=== PATIENT | male | born 1975 ===

== ENCOUNTER 2017-08-02 20:08 | Emergency (ER) | payer SELFPAY ==
[2017-08-02 20:38] VITALS: BP 146/87; PULSE 87; RESP 18; TEMP 98; O2SAT 98
--- NOTE | 2017-08-02 21:14 | ED PDOC ---
HPI: Back Time Seen by Provider: 08/02/17 20:44 Chief Complaint (Nursing): Back Pain Chief Complaint (Provider): Neck and Back Pain History Per: Patient History/Exam Limitations: no limitations Onset/Duration Of Symptoms: Days (worse x7 days), Intermittent Episodes Current Symptoms Are (Timing): Still Present Quality Of Discomfort: "Pain" Exacerbating Factor(s): Movement (lowering head down) Additional Complaint(s): 42 y/o male presents to the ED with neck and lower back pain. Patient states it has been occurring intermittently for the past month but symptoms have worsened in the past week. He states when he bends his head down towards his chest the pain in his neck suddenly worsens. Patient states the pain in his back shoots across his lower back and radiates into both legs. 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 He ingested Motrin for the pain at 3:00 PM today with no relief and has been using ICY Hot pads with no relief. Patient denies any recent falls, trauma, incontinence, problems defecating, nausea, vomiting, chest pain, blood in urine, dysuria, abdominal pain, and saddle anesthesia. PCP: None Past Medical History Reviewed: Historical Data Vital Signs: Last Vital Signs Temp 98.0 F 08/02/17 20:35 Pulse 87 08/02/17 20:35 Resp 18 08/02/17 20:35 BP 146/87 08/02/17 20:35 Pulse Ox 98 08/02/17 20:35 - Medical History PMH: No Chronic Diseases - Surgical History Surgical History: No Surg Hx - Family History Family History: States: Unknown Family Hx - Living Arrangements Living Arrangements: With Family - Social History Current smoker - smoking cessation education provided: No Ex-Smoker (has not smoked in the last 12 months): No Alcohol: Social Drugs: Denies - Home Medications Home Medications: Ambulatory Orders Medication Instructions Recorded Cyclobenzaprine [Cyclobenzaprine 10 mg PO Q8 PRN #12 tab 08/02/17 HCl] Meloxicam [Mobic] 15 mg PO DAILY #14 tablet 08/02/17 - Allergies Allergies/Adverse Reactions: Allergies Allergy/AdvReac Type Severity Reaction Status Date / Time No Known Allergies Allergy Verified 08/02/17 20:35 Review of Systems ROS Statement: Except As Marked, All Systems Reviewed And Found Negative Constitutional: Negative for: Fever, Chills, Weakness Cardiovascular: Negative for: Chest Pain Gastrointestinal: Negative for: Nausea, Vomiting, Abdominal Pain, Diarrhea, Constipation, Other (bowel movement issues) Genitourinary Male: Negative for: Dysuria, Incontinence, Hematuria Musculoskeletal: Positive for: Neck Pain, Back Pain Physical Exam - Reviewed Nursing Documentation Reviewed: Yes Vital Signs Reviewed: Yes - Physical Exam Appears: Positive for: Well, Non-toxic, No Acute Distress Head Exam: Positive for: ATRAUMATIC, NORMOCEPHALIC Skin: Positive for: Normal Color, Warm, Dry Eye Exam: Positive for: EOMI, Normal appearance, PERRL Neck: Positive for: Painless ROM, Supple, Pain On Movement Of Neck (bilateral paracervical tenderness that worsens with lateral flexion however FROM intact (- ) midline tenderness) Cardiovascular/Chest: Positive for: Regular Rate, Rhythm Respiratory: Positive for: Normal Breath Sounds. Negative for: Decreased Breath Sounds, Accessory Muscle Use, Respiratory Distress Gastrointestinal/Abdominal: Positive for: Soft. Negative for: Tenderness, Distended, Guarding Back: Positive for: Muscle Spasm (right paralumbar), Other (bilateral straight leg raise at 15 degrees; (+) bilateral paralumbar tenderness). Negative for: L CVA Tenderness, R CVA Tenderness, Vertebral Tenderness Extremity: Positive for: Other (forge tender strength equal). Negative for: Pedal Edema , Calf Tenderness, Deformity Neurologic/Psych: Positive for: Alert, Oriented (x3), Gait (steady in ED) - ECG O2 Sat by Pulse Oximetry: 98 (RA) Pulse Ox Interpretation: Normal Medical Decision Making Medical Decision Making: Time: 20:35 Impression: Acute musculoskeletal neck and back pain, radicular pain Initial Plan: * Tramadol 50 mg PO * Toradol 30 mg IM * Flexeril 10 mg PO (Patient states he will not be driving home) 2144 Patient sleeping in ED stretcher. No acute distress noted. 2244 On re-evaluation, patient reports improvement of symptoms and remains ambulatory in ED with steady gait. On exam, patient remains AAOx3, in no acute distress. On exam, neck is supple, lungs CTA, cardiac RRR, abdomen is soft and non-tender, neuro exam shows no focal findings. Diagnostic results d/w the patient in great detail. Dx of acute back and neck pain, sciatica/radicular pain d/w the patient. Based on history, exam and diagnostic results plan will be for discharge and outpatient follow up. Advised to follow up with primary care physician / clinic/ ortho in 1-2 days without fail. Advised to take medication as prescribed. Return to the emergency room at any time for any new or worsening symptoms. Patient states he fully agrees with and understands discharge instructions. States that he agrees with the plan and disposition. Verbalized and repeated discharge instructions and plan. I have given the patient opportunity to ask any additional questions. Scribe Attestation: Documented by Juan José Ruelas acting as a scribe Inez Lutz PA-C. Scribe Attestation: All medical record entries made by the Scribe were at my direction and personally dictated by me. I have reviewed the chart and agree that the record accurately reflects my personal performance of the history, physical exam, medical decision making, and the department course for this patient. I have also personally directed, reviewed, and agree with the discharge instructions and disposition. Disposition - Clinical Impression Clinical Impression: Back pain, Low back pain, Radicular pain of lower extremity, Neck pain, bilateral - Patient ED Disposition Is Patient to be Admitted: No Counseled Patient/Family Regarding: Diagnosis, Need For Followup, Rx Given - Disposition Referrals: Mt Garcia III, MD [Staff Provider] - Disposition: Routine/Home Disposition Time: 22:56 Condition: STABLE Prescriptions: Cyclobenzaprine [Cyclobenzaprine HCl] 10 mg PO Q8 PRN #12 tab PRN Reason: spasm Meloxicam [Mobic] 15 mg PO DAILY #14 tablet Instructions: Low Back Pain in Adults, Radiculopathy, Generalized Neck Pain Forms: [employer] (Swedish), [facility] ED School/Work Excuse Print Language: JAPANESE - POA Present On Arrival: None
== END 2017-08-02 23:04 | disposition home or self-care (01) ==
LOC: H.ER 20:08
DX: M54.5 Low back pain (principal); M54.2 Cervicalgia; M54.10 Radiculopathy, site unspecified
CPT/HCPCS: 96372; 99283; J1885